=== PATIENT | male | born 1995 | race Caucasian/White ===

== ENCOUNTER 2023-05-13 01:49 | Emergency (ER) | payer SELFPAY ==
[2023-05-13 01:54] VITALS: BP 124/87
[2023-05-13 02:01] VITALS: BP 91/53
[2023-05-13 02:15] VITALS: BP 113/67
[2023-05-13] MEDS ORDERED: ULTRAM50 MG PO (02:19)
[2023-05-13 02:30] VITALS: BP 111/62
[2023-05-13 02:32] VITALS: BP 111/62
== END 2023-05-13 02:44 | disposition home or self-care (01) | DRG 563 ==
LOC: ED 01:49
DX: S43.101A Unspecified dislocation of right acromioclavicular joint, initial encounter (principal); W18.30XA Fall on same level, unspecified, initial encounter